=== PATIENT | female | born 1950 | race Caucasian/White ===

== ENCOUNTER 2017-04-11 21:53 | Emergency (ER) | payer MEDICARE ==
[~2017-04-11 21:53] MED LIST: ISOVUE-370 76%-LOCM 1 ML ONE
[2017-04-11 22:58] LABS: #Eosinphils 0.4 thou/uL (0.0-0.7); #Lymphocytes 2.4 thou/uL (1.20-3.40); #Monocytes 0.9 thou/uL (0.11-0.59); #Neutrophils 4.5 thou/uL (1.40-6.50); %Basophils 0.1 % (0.0-1.0); %Eosinophils 4.9 % (0.0-10.0); %Lymphocytes 29.5 % (21.0-51.0); %Monocytes 10.9 % (0.0-10.0); Hematocrit 40.8 % (36.0-47.0); Mean Platelet Volume 7.5 fL (7.4-10.4); Red Blood Cell (RBC) Count 4.44 mill/uL (4.20-5.40); White Blood Cell (WBC) Count 8.3 thou/uL (4.8-10.8)
[2017-04-11 23:10] LABS: Lactic Acid - Sepsis 2.4 mmol/L (0.5-2.2)
[2017-04-11 23:15] LABS: ALT (SGPT) 14 U/L (8-55); AST (SGOT) 14 U/L (5-34); Alkaline Phosphatase 104 U/L (40-150); Anion Gap 12 mmol/L (10-20); BUN (Urea Nitrogen) 18 mg/dL (9.8-20.1); Bilirubin, Total 0.5 mg/dL (0.2-1.2); Calc. Creatinine Clearance 0 mL/min (70-130); Calcium 9.3 mg/dL (7.8-10.44); Carbon Dioxide 22 mmol/L (23-31); Chloride 104 mmol/L (98-107); Estimated GFR-MDRD 64; Globulin 2.9 g/dL (2.4-3.5); Protein, Total 6.6 g/dL (6.0-8.3)
--- NOTE | 2017-04-11 23:55 | CT ---
CT FACIAL BONES 04/11/17 Axial images are obtained with coronal and sagittal reconstructions. HISTORY: Facial swelling, possible abscess. Axial images are obtained with coronal and sagittal reconstructions. The orbits demonstrate no significant evidence of intra or extraconal abnormalities. The frontal, eth moid, maxillary and sphenoid sinuses are well aerated. The parotid and carotid spaces are unremarkabl e. The nasopharynx is unremarkable. No significant evidence of lymphadenopathy seen. IMPRESSION: Normal contrast enhanced CT face. POS: [facility]
--- NOTE | 2017-04-11 23:57 | CT ---
CONTRAST ENHANCED CT IMAGES OF BRAIN 04/11/17 HISTORY: Forehead abscess. Contrast enhanced CT images of the brain is obtained. No evidence of significant scalp abscess seen. There is some edema in the anterior just right paracen tral aspect of the scalp which may represent some minimal cellulitis. No evidence of enhancing absces s is seen. Te brain is unremarkable. No evidence of intracranial masses, hemorrhages or strokes seen. The paranasal sinuses are well aerated. IMPRESSION: No definite evidence of scalp abscess. There is some minimal right frontal scalp asymmetry and edema, possibly representing cellulitis. POS: [facility]
== END 2017-04-12 03:10 | disposition home or self-care (01) ==
LOC: ERS 21:53
DX: R21 Rash and other nonspecific skin eruption (principal); K50.90 Crohn's disease, unspecified, without complications; M06.9 Rheumatoid arthritis, unspecified; E11.9 Type 2 diabetes mellitus without complications; F32.9 Major depressive disorder, single episode, unspecified; Z79.899 Other long term (current) drug therapy
CPT/HCPCS: 36415; 36416; 70460; 70487; 80053; 83605; 85025; 87040; 96361; 96365; J3370

== ENCOUNTER 2017-05-09 09:18 | Day surgery (SDC) | payer MEDICARE ==
[2017-05-08 11:27] VITALS: BMI 30.7
[~2017-05-09 09:18] MED LIST changes: +FLU VACC TS2017-18 (>65YR) 0.5 ML SYRINGE IM ONE; -ISOVUE-370 76%-LOCM 1 ML ONE
[2017-05-09 11:04] VITALS: BP 126/88; TEMP 97.5
--- NOTE | 2017-05-09 15:25 | RAD ---
LUMBAR SPINE MYELOGRAM INDICATION: Low back pain, lumbar myelopathy, spondylosis. PROCEDURE: After informed consent had been obtained, the patient was escorted to the interventional suite and pl aced on the procedural table. Sulfide Head Operator imaging was performed. The patient was placed into a prone posi tion. Skin on the low back was then prepped and draped in the standard sterile fashion and topical a nd regional soft tissue anesthesia was achieved with 1% lidocaine and sodium bicarbonate. L3-4 righ t interlaminar approach was selected, and a 22 gauge needle was uneventfully advanced into the thecal sac with clear color CSF. Subsequently, 10 cc Omnipaque 200 was instilled into the thecal sac under real time fluoroscopy. Appropriate opacification of thecal sac demonstrated with imaging stored for confirmation. The needle was then removed from the patient. The patient tolerated the procedure we ll and was then transferred to CT to undergo subsequent myelogram. Reference separate report for stephon farnsworth details. FLUORO DATA: 0.3 minutes intermittent fluoroscopy, 41 mGy*^m2. IMPRESSION: Technically successful lumbar myelogram as detailed above. POS: [facility]
--- NOTE | 2017-05-09 15:53 | CT ---
CT LUMBAR SPINE MYELOGRAM CT LUMBAR SPINE WITH CONTRAST: CLINICAL HISTORY: Lumbar spondylosis and myelopathy. FINDINGS: There is multilevel posterior metallic fusion which spans the L3 through S1 segments. There are bila teral pedicle screws with bilateral vertical interconnecting rods. No obvious perihardware lucency i s demonstrated. Intervertebral disk space prostheses are present at L3-4, L4-5, and L5-S1. L5-S1: No significant central canal stenosis. There is mild to moderate osseous compromise of the r ight neural foramen. No high-grade left renal stenosis. L4-5: No significant central canal stenosis. There is moderate osseous compromise of the left neura l foramen and mild osseous compromise of the right neural foramen. L3-4: Prominent streak artifact limits assessment, although no significant central canal compromise. There is mild osseous compromise of each neural foramen. L2-3: Mild to moderate central canal stenosis on the basis of broad-based disk bulge. There is no h igh-grade foraminal stenosis. There is mild effacement of the ventral thecal sac by disk-osteophyte complex. No high foraminal chloe nosis. There is an indwelling IVC filter incidentally noted. There are partially imaged metallic screws of each supraacetabular region. Conus medullaris terminates at the T12 level. There is nonobstructing punctate nephrolithiasis involving superior pole of the right kidney. Incide ntally noted is a small hiatal hernia. IMPRESSION: Postoperative lumbar spine with multilevel degenerative change as outlined above. POS: [facility]
== END 2017-05-09 12:50 | disposition home or self-care (01) ==
LOC: RAD 09:18
PROVIDERS: ATTEND Neurological Surgery
PROC: B00B1ZZ Plain Radiography of Spinal Cord using Low Osmolar Contrast (ICD-10-PCS; principal; 2017-05-09)
DX: M47.16 Other spondylosis with myelopathy, lumbar region (principal); D64.9 Anemia, unspecified; E11.9 Type 2 diabetes mellitus without complications; K50.90 Crohn's disease, unspecified, without complications; Q79.6 Ehlers-Danlos syndromes; M06.9 Rheumatoid arthritis, unspecified; K21.9 Gastro-esophageal reflux disease without esophagitis; I35.1 Nonrheumatic aortic (valve) insufficiency; E03.9 Hypothyroidism, unspecified; F41.8 Other specified anxiety disorders; Z79.4 Long term (current) use of insulin; Z79.899 Other long term (current) drug therapy; Z98.1 Arthrodesis status; Z98.51 Tubal ligation status; Z96.643 Presence of artificial hip joint, bilateral; Z90.89 Acquired absence of other organs; Z90.710 Acquired absence of both cervix and uterus; Z90.49 Acquired absence of other specified parts of digestive tract; Z90.722 Acquired absence of ovaries, bilateral; Z90.79 Acquired absence of other genital organ(s); Z98.890 Other specified postprocedural states; Z91.410 Personal history of adult physical and sexual abuse; Z86.14 Personal history of Methicillin resistant Staphylococcus aureus infection
CPT/HCPCS: 62304; 72132

== ENCOUNTER 2017-07-10 12:43 | Outpatient (CLI) | payer MEDICARE | END 2017-07-10 12:44 | disposition home or self-care (01) | LOC: BICMAMMO 12:43 | PROVIDERS: ATTEND Internal Medicine | DX: Z12.31 Encounter for screening mammogram for malignant neoplasm of breast (principal) | CPT/HCPCS: 77063; 77067 ==

== ENCOUNTER 2017-08-09 20:34 | Emergency (ER) | payer MEDICARE ==
[2017-08-09 22:53] LABS: #Eosinphils 0.1 thou/uL (0.0-0.7); #Lymphocytes 2.6 thou/uL (1.20-3.40); #Monocytes 0.7 thou/uL (0.11-0.59); #Neutrophils 3.6 thou/uL (1.40-6.50); %Basophils 0.6 % (0.0-1.0); %Eosinophils 1.8 % (0.0-10.0); %Monocytes 9.3 % (0.0-10.0); %Neutrophils 51.3 % (42.0-75.0); Mean Corpuscular HGB CONC 34.1 g/dL (32.0-36.0); Mean Corpuscular Hemoglobin 33.4 pg (27.0-31.0); Mean Corpuscular Volume 97.9 fl (81.0-99.0); Mean Platelet Volume 7.3 fL (7.4-10.4); Platelet Count 208 thou/uL (130-400); RBC Distribution Width 11.6 % (11.5-14.5); Red Blood Cell (RBC) Count 4.78 mill/uL (4.20-5.40); White Blood Cell (WBC) Count 6.9 thou/uL (4.8-10.8)
[2017-08-09 23:13] LABS: ALT (SGPT) 19 U/L (8-55); AST (SGOT) 16 U/L (5-34); Albumin 4.4 g/dL (3.4-4.8); Alkaline Phosphatase 113 U/L (40-150); Anion Gap 13 mmol/L (10-20); BUN (Urea Nitrogen) 23 mg/dL (9.8-20.1); Bilirubin, Total 0.8 mg/dL (0.2-1.2); Calc. Creatinine Clearance 0 mL/min (70-130); Calcium 10.8 mg/dL (7.8-10.44); Carbon Dioxide 26 mmol/L (23-31); Chloride 104 mmol/L (98-107); Estimated GFR-MDRD 50; Globulin 2.9 g/dL (2.4-3.5); Glucose 188 mg/dL (80-115); Potassium 4.4 mmol/L (3.5-5.1); Protein, Total 7.3 g/dL (6.0-8.3); Sodium 139 mmol/L (136-145)
[2017-08-09 23:18] LABS: CKMB 2.2 ng/mL (0-6.6); Troponin I Less than 0.010 ng/mL (< 0.028)
--- NOTE | 2017-09-22 22:13 | EKG ---
Test Reason : Blood Pressure : / mmHG Vent. Rate : 057 BPM Atrial Rate : 057 BPM P-R Int : 176 ms QRS Dur : 080 ms QT Int : 448 ms P-R-T Axes : 064 012 046 degrees QTc Int : 436 ms Sinus bradycardia Otherwise normal ECG Confirmed by NEDA LERNER D.O. ([id number]), editor sound BEATRICE GARCIA ([id number]) on 09/22/2017 10:13:04 PM Referred By: Confirmed By:NEDA LERNER D.O.
== END 2017-08-09 23:40 | disposition home or self-care (01) ==
LOC: ERS 20:34
DX: R07.89 Other chest pain (principal); E11.9 Type 2 diabetes mellitus without complications; F32.9 Major depressive disorder, single episode, unspecified
CPT/HCPCS: 36415; 80053; 82553; 84443; 84484; 85025; 93005

== ENCOUNTER 2017-09-19 11:02 | Outpatient (CLI) | payer MEDICARE | END 2017-09-19 11:03 | disposition home or self-care (01) | LOC: BICRAD 11:02 | PROVIDERS: ATTEND Internal Medicine | DX: M43.16 Spondylolisthesis, lumbar region (principal); M81.8 Other osteoporosis without current pathological fracture; Z98.1 Arthrodesis status | CPT/HCPCS: 72110 ==

== ENCOUNTER 2017-12-25 06:37 | Day surgery (SDC) | payer MEDICARE ==
[2017-12-24 11:52] VITALS: BMI 31.4
[2017-12-25 07:59] VITALS: BP 139/88; TEMP 96.7
--- NOTE | 2017-12-25 10:16 | RAD ---
LUMBAR SPINE MYELOGRAM: Date: 12/25/17 INDICATION: Low back pain, lower extremity pain/lumbar radiculopathy, bilaterally. PROCEDURE: Informed consent was obtained, and the patient was transferred to the interventional suite. It Senior Software Engineer Java im aging was performed prior to the procedure. The patient was then placed into a prone position, and the low back was prepped and draped in the sta ndard sterile fashion. Topical anesthesia was achieved with 1% lidocaine buffered with sodium bicarb rg. Using a 22 gauge needle, uneventful access was obtained into the thecal sac from an interlami ag approach at the L2-3 level. Clear color CSF was noted at the needle hub. Subsequently, 10 mL of Omnipaque 200 was instilled into the thecal sac. This was performed under real-time fluoroscopy wit h appropriate contrast opacification of the thecal sac demonstrated during the exam with adequate con trast opacification achieved. The needle was removed. The patient tolerated the procedure well with out evidence of complication. The patient was then transferred to CT Department to undergo further i maging. Please reference separate CT myelogram for additional details. Exposure Data: 0.3 minutes. 141 mGy*cm^2. IMPRESSION: Technically successful lumbar spine myelogram. POS: [facility]
--- NOTE | 2017-12-25 10:21 | CT ---
LUMBAR SPINE CT WITH CONTRAST CT MYELOGRAM OF LUMBAR SPINE: Date: 12/25/17 CLINICAL HISTORY: Low back pain. COMPARISON: 05/09/17 CT lumbar spine myelogram. FINDINGS: There is posterior metallic fusion which spans the L3 through S1 segments. No interval perihardware l ucency of significance is visualized. Hardware alignment is grossly stable. Conus medullaris terminat es at the T12 level. Redemonstration of punctate right nephrolithiasis. Scattered vascular disease is present. There is an inferior vena cava filter in place. L5-S1: No significant central canal stenosis. Grossly stable mild to moderate right neural foraminal narrowi ng. No significant left foraminal stenosis. L4-5: No significant central canal stenosis. There is grossly stable moderate stenosis of the left neural f oramen and mild osseous compromise of the right neural foramen. L3-4: This level remains markedly limited in visualization by prominent degree of streak artifact. No signi ficant interval change with regard to central canal and neural foramina, with no new high grade osseo us compromise of the central canal. Mild narrowing of each neural foramen is grossly stable. L2-3: There remains mild to moderate central canal stenosis due to broad based disc bulge. No high grade fo raminal stenosis. L1-2: No significant interval change with persistent mild effacement of the ventral thecal sac. No signific ant neural foraminal stenosis. IMPRESSION: Postoperative lumbar spine with stable appearing multilevel degenerative change. POS: [facility]
== END 2017-12-25 10:05 | disposition home or self-care (01) ==
LOC: RAD 06:37
PROVIDERS: ATTEND Nurse Practitioner Family
DX: M48.062 Spinal stenosis, lumbar region with neurogenic claudication (principal); M47.816 Spondylosis without myelopathy or radiculopathy, lumbar region; N28.9 Disorder of kidney and ureter, unspecified; E11.9 Type 2 diabetes mellitus without complications; E78.00 Pure hypercholesterolemia, unspecified; K50.90 Crohn's disease, unspecified, without complications; Z79.899 Other long term (current) drug therapy
CPT/HCPCS: 62304; 72132

== ENCOUNTER 2018-02-05 10:29 | Outpatient (CLI) | payer MEDICARE ==
--- NOTE | 2018-02-05 12:02 | RAD ---
RIGHT HIP TWO VIEWS: History: 68-year-old female with right hip pain. Comparison: 01-23-13 FINDINGS: Total right hip replacement without dislocation or periprosthetic fracture with little change from pr ior exam. IMPRESSION: Total right hip replacement. No acute process. POS: [facility]
== END 2018-02-05 10:30 | disposition home or self-care (01) ==
LOC: RAD 10:29
PROVIDERS: ATTEND Nurse Practitioner Family
DX: M25.551 Pain in right hip (principal); Z96.641 Presence of right artificial hip joint

== ENCOUNTER 2018-05-10 10:03 | Day surgery (SDC) | payer MEDICARE ==
[2018-05-10] MEDS ORDERED: Vancomycin HCl 1.5 GM in Sodium Chloride 0.9% 250 ML 300 ML IVPB SCH (10:45)
[2018-05-10] MEDS ORDERED: Ondansetron PF 4 MG/2 ML Vial ONE (10:48)
[2018-05-10] MEDS ORDERED: Lidocaine 1% PF 5 ML VIAL ONE (10:48)
[2018-05-10] MEDS ORDERED: PROPOFOL 200 MG/20 ML VIAL ONE (10:48)
[2018-05-10 10:59] LABS: #Eosinphils 0.2 thou/uL (0.0-0.7); #Lymphocytes 1.9 thou/uL (1.20-3.40); #Monocytes 0.5 thou/uL (0.11-0.59); #Neutrophils 3.7 thou/uL (1.40-6.50); %Basophils 0.3 % (0.0-1.0); %Lymphocytes 29.7 % (21.0-51.0); %Monocytes 8.7 % (0.0-10.0); %Neutrophils 58.4 % (42.0-75.0); Hemoglobin 14.7 g/dL (12.0-16.0); Mean Corpuscular HGB CONC 34.6 g/dL (32.0-36.0); Mean Corpuscular Hemoglobin 32.7 pg (27.0-31.0); Mean Corpuscular Volume 94.4 fL (78.0-98.0); Mean Platelet Volume 7.3 fL (7.4-10.4); Platelet Count 178 thou/uL (130-400); RBC Distribution Width 11.4 % (11.5-14.5); Red Blood Cell (RBC) Count 4.49 mill/uL (4.20-5.40); White Blood Cell (WBC) Count 6.3 thou/uL (4.8-10.8)
[2018-05-10 11:18] LABS: Anion Gap 12 mmol/L (10-20); BUN (Urea Nitrogen) 20 mg/dL (9.8-20.1); Calc. Creatinine Clearance 0 mL/min (70-130); Calcium 10.1 mg/dL (7.8-10.44); Carbon Dioxide 28 mmol/L (23-31); Chloride 105 mmol/L (98-107); Estimated GFR-MDRD 60; Glucose 117 mg/dL (80-115); Potassium 4.5 mmol/L (3.5-5.1); Sodium 140 mmol/L (136-145)
[2018-05-10] MEDS ORDERED: Bupivacaine/Epinephrine 0.25% 30 ML VIAL ONE (11:41)
[2018-05-10] MEDS ORDERED: Fentanyl 100 MCG/2 ML VIAL ONE (11:50)
--- NOTE | 2018-05-10 15:46 | PDOC.OP ---
Operative Note - Operative Note Operative Note: PROCEDURE: Incision and drainage of right arm hematoma DATE OF PROCEDURE: 05/10/2018 SURGEON: Alejandra Calabrese M.D. PREOPERATIVE DIAGNOSES: Right arm hematoma POSTOPERATIVE DIAGNOSIS: Right arm hematoma HISTORY: Patient with persistent protuberant tender subcutaneous mass consistent with a hematoma following a fall over a month ago. She has a history of Dandy-Danlos and multiple MRSA infections so the decision was made to drain this in the operating room with preoperative antibiotics. PROCEDURE IN DETAIL: After informed consent was obtained and appropriate preoperative antibiotics were administered, the patient was taken to the operating room she was placed in supine position and intravenous anesthesia was administered. She was prepped and draped in standard sterile fashion and local anesthesia infused circumferentially for a field block. An elliptical incision was made including some of the redundant skin and a large hematoma cavity entered. Some of the hematoma was liquid but most of it was organized and solid. This was able to be from the surrounding tissues and removed. The patient appeared to have a chronic somewhat serosalized cavity so this was cauterized to encourage adherence of the tissues and the cavity was imbricated with several layers of Vicryl suture. The skin was then closed with a running subcuticular 4-0 Monocryl suture and Dermabond dressing was placed. Once this was dry, a pressure dressing and Rufus wrap were placed. The patient tolerated the procedure well. Estimated blood loss was minimal. There were no complications. There were no specimens.
== END 2018-05-10 14:35 | disposition home or self-care (01) ==
LOC: SDC 10:03
PROVIDERS: ATTEND Surgery
PROC: 0J9D0ZZ Drainage of Right Upper Arm Subcutaneous Tissue and Fascia, Open Approach (ICD-10-PCS; principal; 2018-05-10)
DX: S40.021A Contusion of right upper arm, initial encounter (principal); I10 Essential (primary) hypertension; E11.9 Type 2 diabetes mellitus without complications; E78.00 Pure hypercholesterolemia, unspecified; E07.9 Disorder of thyroid, unspecified; M19.90 Unspecified osteoarthritis, unspecified site; F32.9 Major depressive disorder, single episode, unspecified; K50.90 Crohn's disease, unspecified, without complications; Z90.89 Acquired absence of other organs; Z98.51 Tubal ligation status; Z90.710 Acquired absence of both cervix and uterus; Z79.4 Long term (current) use of insulin; Z79.1 Long term (current) use of non-steroidal anti-inflammatories (NSAID); Z79.899 Other long term (current) drug therapy; Z98.890 Other specified postprocedural states; W19.XXXA Unspecified fall, initial encounter
CPT/HCPCS: 80048; 85025; J2001; J2405; J2704; J3010; J3370; J7050

== ENCOUNTER 2018-06-04 11:27 | Day surgery (SDC) | payer MEDICARE ==
[2018-05-09 12:00] VITALS: BMI 32.3
[2018-06-04] MEDS ORDERED: Fentanyl 100 MCG/2 ML VIAL ONE (13:27)
[2018-06-04] MEDS ORDERED: Propofol 1,000 MG/100 ML VIAL IV ONE (13:27)
[2018-06-04] MEDS ORDERED: Bupivacaine HCl 0.5%/Epinephrine 1:200,000/PF 30 ml Vial ONE (13:38)
[2018-06-04] MEDS ORDERED: Lidocaine 2% PF 5 ML VIAL ONE (13:38)
[2018-06-04] MEDS ORDERED: Sodium Chloride 0.9% 0 ML ONE (13:39)
[2018-06-04] MEDS ORDERED: ePHEDrine 50 MG/ML VIAL ONE (16:37)
[2018-06-04] MEDS ORDERED: PHENYLEPHRINE-NS 100 MCG/ML 10 ML SYRINGE ONE (16:37)
[2018-06-04] MEDS ORDERED: PROPOFOL 200 MG/20 ML VIAL ONE (16:37)
--- NOTE | 2018-06-04 16:56 | RAD ---
LUMBAR SPINE INTRAOPERATIVE FLUOROSCOPY: 06/04/18 HISTORY: Stimulator lead placement. FINDINGS/IMPRESSION: : Intraoperative fluoroscopy was provided for stimulator lead placement as performed by Dr. Guerrero . Single spot image shows two metallic leads overlying the central spinal canal of the mid to lower t horacic spine. FLUORO TIME: 3:01. POS: [facility]
--- NOTE | 2018-06-05 14:43 | OP ---
DATE OF PROCEDURE: 06/04/2018 PREOPERATIVE DIAGNOSES: 1. Post-laminectomy syndrome, lumbar. 2. Chronic pain. 3. Chronic lumbar radiculopathy. POSTOPERATIVE DIAGNOSES: 1. Post-laminectomy syndrome, lumbar. 2. Chronic pain. 3. Chronic lumbar radiculopathy. PROCEDURES PERFORMED: 1. Implantation of the right spinal cord stimulation electrode array. 2. Implantation of the left spinal cord stimulation electrode array. 3. Intraoperative programming. 4. Fluoroscopic guidance. 5. Implantation of internal pulse generator. ANESTHESIA: TIVA. COMPLICATIONS: None. ESTIMATED BLOOD LOSS: Minimal. DESCRIPTION OF PROCEDURE: Risks and benefits were discussed. Informed consent was obtained. She was taken to the OR and prepped and draped in standard fashion with DuraPrep. Preoperatively, the patient was given 1 g of Vancomycin given her prior remote history of MRSA infection. Note that she has had a successful trial without complication of spinal cord stimulation in the past. She was prepped and draped in the standard fashion with DuraPrep, let to dry. 1% lidocaine was used for skin wheal over the spinous processes from L1 through L3 and over the left buttocks that has the IPG. Incision was taken down to using the Metzenbaum's and Bovie for blunt dissection and hemostasis down to the supraspinous ligament. Using right and left paramedian approach, the supplied Tuohy needle st. Lance system was advanced easily into the ligament of flavum, loss of resistance technique; one pass, no paresthesia, CHF, or heme. The leads were then advanced under fluoroscopic guidance with the most cephalad electrode at the superior endplate of T9 on the right side, left lead was placed parallel, intraoperative programming ensued for 1 hour, achieving appropriate back and bilateral leg stimulation concordant and overlapping with the patient's symptomatology. This completed the lead implant. The stylets were removed intact. The needles were removed intact. Lead anchors were slipped over the leads. Each lead was secured to the fascia using two 2-0 silk sutures, each lead anchor was then locked in place. Attention was then turned to the left pocket. Incision was made to the skin, blunt dissection to the fascia. Fascia undermined. Tunneler was accomplished between incisions using the supplied straw tunneler. Leads were placed through the straw into the IPG pocket. Straw was then removed. Leads were then placed into the internal pulse generator and all set screws were tightened with the ratcheted screwdriver. The St. Lance's non-rechargeable internal pulse generator was then placed in the pocket riding side out. Closure was accomplished with interrupted 2-0 Vicryl in layers for both incisions and skin was closed with running subcuticular 4-0 Rapide. Prior to closure, all counts were correct x2. There were no complications. Job ID: [id number]
== END 2018-06-04 16:40 | disposition home or self-care (01) ==
LOC: SDC 11:27
PROVIDERS: ATTEND Anesthesiology Pain Medicine
PROC: 0JH70DZ Insertion of Multiple Array Stimulator Generator into Back Subcutaneous Tissue and Fascia, Open Approach (ICD-10-PCS; principal; 2018-06-04)
PROC: 00HU3MZ Insertion of Neurostimulator Lead into Spinal Canal, Percutaneous Approach (ICD-10-PCS; 2018-06-04)
DX: M96.1 Postlaminectomy syndrome, not elsewhere classified (principal); M54.16 Radiculopathy, lumbar region; E11.9 Type 2 diabetes mellitus without complications; E03.9 Hypothyroidism, unspecified; K21.9 Gastro-esophageal reflux disease without esophagitis; K50.90 Crohn's disease, unspecified, without complications; Q79.6 Ehlers-Danlos syndromes; M06.9 Rheumatoid arthritis, unspecified; Z95.818 Presence of other cardiac implants and grafts; Z79.4 Long term (current) use of insulin; Z79.899 Other long term (current) drug therapy
CPT/HCPCS: 72020; 76000; C1767; J0670; J2001; J2704; J3010; J3370; J3490

== ENCOUNTER 2018-07-18 09:03 | Outpatient (CLI) | payer MEDICARE ==
--- NOTE | 2018-07-22 13:24 | MMO ---
Bilateral MAMMO Bilat Screen [facility]. CLINICAL HISTORY: Patient is 68 years old and is seen for screening. The patient has no family history of breast cancer. The patient has a history of other cancer. The patient has a history of right Excisional Biopsy in April, - benign, left Excisional Biopsy in 1982 - benign and right Excisional Biopsy in 1987 - benign - cyst removed. VIEWS: The views performed were: bilateral craniocaudal with tomosynthesis and bilateral mediolateral oblique with tomosynthesis. FILMS COMPARED: The present examination has been compared to prior imaging studies performed at [facility] on 02/14/2012, 05/23/2012, 04/10/2013, 04/13/2014, 05/20/2015, 06/08/2016 and 07/10/2017, and at [facility] on 02/13/2007, 08/06/2008, 10/27/2009 and 12/22/2010. MAMMOGRAM FINDINGS: There are scattered fibroglandular densities. There is a new focal asymmetry seen in the posterior upper-inner region of the right breast. In the left breast, there are no suspicious masses, calcifications or areas of architectural distortion. IMPRESSION: NEW FOCAL ASYMMETRY IN THE RIGHT BREAST REQUIRES ADDITIONAL EVALUATION. AN ULTRASOUND EXAM IS RECOMMENDED IF NEEDED. RECOMMEND DIAGNOSTIC MAMMOGRAM. THE RESULTS OF THIS EXAM WERE SENT TO THE PATIENT. ACR BI-RADS Category 0 - Incomplete: Need additional imaging evaluation. [facility] will notify the patient of the need for additional imaging services. MAMMOGRAPHY NOTE: 1. A negative mammogram report should not delay a biopsy if a dominant of clinically suspicious mass is present. 2. Approximately 10% to 15% of breast cancers are not detected by mammography. 3. Adenosis and dense breasts may obscure an underlying neoplasm.
== END 2018-07-18 09:04 | disposition home or self-care (01) ==
LOC: BICMAMMO 09:03
PROVIDERS: ATTEND Internal Medicine
DX: Z12.31 Encounter for screening mammogram for malignant neoplasm of breast (principal); N64.89 Other specified disorders of breast; Z85.89 Personal history of malignant neoplasm of other organs and systems; Z98.890 Other specified postprocedural states
CPT/HCPCS: 77063; 77067

== ENCOUNTER 2018-07-26 09:46 | Outpatient (CLI) | payer MEDICARE ==
--- NOTE | 2018-07-26 11:56 | MMO ---
Right Breast MAMMO Unilat Diag [facility]. CLINICAL HISTORY: Patient is 68 years old and is seen for additional evaluation requested from prior study. The patient has no family history of breast cancer. The patient has a history of other cancer. The patient has a history of right Excisional Biopsy in April, - benign, left Excisional Biopsy in 1982 - benign and right Excisional Biopsy in 1987 - benign - cyst removed. VIEWS: The views performed were: right craniocaudal magnification; right mediolateral oblique magnification; right mediolateral; right rolled lateral with tomosynthesis; and right rolled medial with tomosynthesis. FILMS COMPARED: The present examination has been compared to prior imaging studies performed at [facility] on 02/14/2012, 05/23/2012, 04/10/2013, 04/13/2014, 05/20/2015, 06/08/2016, 07/10/2017 and 07/18/2018, and at [facility] on 02/13/2007, 08/06/2008, 10/27/2009 and 12/22/2010. MAMMOGRAM FINDINGS: There are scattered fibroglandular densities. Additional views were performed. The previously seen abnormality is not definitely seen on the current study. IMPRESSION: THERE IS NO MAMMOGRAPHIC EVIDENCE OF MALIGNANCY. A ROUTINE FOLLOW-UP MAMMOGRAM IN 1 YEAR IS RECOMMENDED. 3BTHE RESULTS OF THIS EXAM WERE SENT TO THE PATIENT.0B ACR BI-RADS Category 2 - Benign finding MAMMOGRAPHY NOTE: 1. A negative mammogram report should not delay a biopsy if a dominant of clinically suspicious mass is present. 2. Approximately 10% to 15% of breast cancers are not detected by mammography. 3. Adenosis and dense breasts may obscure an underlying neoplasm.
== END 2018-07-26 09:47 | disposition home or self-care (01) ==
LOC: BICMAMMO 09:46
PROVIDERS: ATTEND Internal Medicine
DX: R92.2 Inconclusive mammogram (principal); Z85.89 Personal history of malignant neoplasm of other organs and systems
CPT/HCPCS: 77065; G0279

== ENCOUNTER 2019-05-13 21:19 | Emergency (ER) | payer MEDICARE ==
--- NOTE | 2019-05-13 22:47 | CT ---
CT head noncontrast HISTORY: Subdural hematoma on outside exam. COMPARISON: 04/11/2017. FINDINGS: Along the right frontal inner calvarium is a crescentic heterogeneous slightly hyperdense f luid collection that measures up to 0.4 cm depth. Along the most superior aspect, the low-density old or portion contains smaller internal hyperdense foci. Minimal effacement of the underlying cerebr al sulci with very subtle mass effect upon the right frontal lobe. Minimal leftward shift of the septum pellucidum. Ventricles are decompressed. IMPRESSION: Acute/subacute right frontal subdural hematoma. Mass effect upon the right frontal lobe w ith minimal leftward shift of the septum pellucidum. Findings were called to Dr. Branham in the emergency department at [id number] hours. Code CR.
== END 2019-05-13 23:45 | disposition home or self-care (01) ==
LOC: ERS 21:19
DX: S06.5X9A Traumatic subdural hemorrhage with loss of consciousness of unspecified duration, initial encounter (principal); K21.9 Gastro-esophageal reflux disease without esophagitis; E78.5 Hyperlipidemia, unspecified; I10 Essential (primary) hypertension; F32.9 Major depressive disorder, single episode, unspecified; Z79.899 Other long term (current) drug therapy; W18.30XA Fall on same level, unspecified, initial encounter
CPT/HCPCS: 70450

== ENCOUNTER 2019-05-15 13:10 | Outpatient (CLI) | payer MEDICARE ==
--- NOTE | 2019-05-15 13:32 | CT ---
CT BRAIN NONCONTRAST: DATE: 05/15/2019 HISTORY: 69-year-old female. Follow-up subdural hematoma. COMPARISON: 05/13/2019 FINDINGS: Again noted is the mixed density right frontoparietal small, broad subdural hematoma. High density co mponents indicate recent component of hemorrhage. Mass effect is minimal upon the right cerebral hemisphere. On an older CT of 04/11/2017, there was already chronic slight right to left shift of the septum pellucidum a distance of 4 mm. Currently, the shift is approximately 6 to 7 mm. The size of the right subdural hematoma has not significant changed since 05/13/2019. No obstructive hydrocephalus , new intra-axial hemorrhage, or calvarial fracture. IMPRESSION: 1. Recent right supratentorial, broad, shallow subdural hematoma with mild mass effect. 2. No significant interval change since 2 days ago.
== END 2019-05-15 13:11 | disposition home or self-care (01) ==
LOC: TBSIIMAG 13:10
PROVIDERS: ATTEND Neurological Surgery
DX: I62.03 Nontraumatic chronic subdural hemorrhage (principal); G93.89 Other specified disorders of brain
CPT/HCPCS: 70450

== ENCOUNTER 2019-07-15 13:19 | Outpatient (CLI) | payer MEDICARE ==
--- NOTE | 2019-07-15 13:56 | CT ---
Exam: Head CT without contrast HISTORY: Follow-up subdural hematoma COMPARISON: 05/15/2019 FINDINGS: Hemorrhage: Slightly hyperdense, enlarging subdural hematoma, with possible loculation, along the rig ht frontal, and anterior temporal convexity. Currently, hematoma measures 1.4 cm in short axis. There is mass effect upon the right frontal and to lesser extent temporal lobe. There is midline shif t, with 0.4 cm right to left subfalcine herniation. Basilar cisterns are patent. Brain parenchyma: Cortical uriarte-white matter differentiation is preserved. Minimal chronic small vess el ischemic changes white matter. Ventricular system: Ventricles and sulci are patent and symmetric. Calvarium: Intact. Sinuses and mastoid air cells: Adequate aeration. IMPRESSION: 1. Enlarging right-sided subdural hematoma. There is increasing mass effect upon the right frontal lo be. 2. 0.4 cm of right to left subfalcine herniation Results study discussed with Julisa Merida on 07/15/2019 1:54 PM Code CR Transcribed Date/Time: 07/15/2019 2:02 PM
== END 2019-07-15 13:20 | disposition home or self-care (01) ==
LOC: TBSIIMAG 13:19
PROVIDERS: ATTEND Physician Assistant
DX: I62.03 Nontraumatic chronic subdural hemorrhage (principal); G93.89 Other specified disorders of brain; G93.5 Compression of brain
CPT/HCPCS: 70450

== ENCOUNTER 2019-08-28 12:37 | Outpatient (CLI) | payer MEDICARE ==
--- NOTE | 2019-08-28 13:39 | MMO ---
Bilateral MAMMO Bilat Screen [facility]. CLINICAL HISTORY: Patient is 69 years old and is seen for screening. The patient has no family history of breast cancer. The patient has a history of other cancer. The patient has a history of right Excisional Biopsy in April, - benign, left Excisional Biopsy in 1982 - benign and right Excisional Biopsy in 1987 - benign - cyst removed. VIEWS: The views performed were: bilateral craniocaudal with tomosynthesis and bilateral mediolateral oblique with tomosynthesis. FILMS COMPARED: The present examination has been compared to prior imaging studies performed at [facility] on 07/10/2017, 07/18/2018 and 07/26/2018. This study has been interpreted with the assistance of computer-aided detection. MAMMOGRAM FINDINGS: There are scattered fibroglandular densities. There are no suspicious masses, suspicious calcifications, or new areas of architectural distortion. IMPRESSION: THERE IS NO MAMMOGRAPHIC EVIDENCE OF MALIGNANCY. A ROUTINE FOLLOW-UP MAMMOGRAM IN 1 YEAR IS RECOMMENDED. THE RESULTS OF THIS EXAM WERE SENT TO THE PATIENT. ACR BI-RADS Category 1 - Negative MAMMOGRAPHY NOTE: 1. A negative mammogram report should not delay a biopsy if a dominant of clinically suspicious mass is present. 2. Approximately 10% to 15% of breast cancers are not detected by mammography. 3. Adenosis and dense breasts may obscure an underlying neoplasm. Reported by: Treva RAMIREZ Electonically Signed: [id number]
== END 2019-08-28 12:38 | disposition home or self-care (01) ==
LOC: BICMAMMO 12:37
PROVIDERS: ATTEND Internal Medicine
DX: Z12.31 Encounter for screening mammogram for malignant neoplasm of breast (principal); Z85.89 Personal history of malignant neoplasm of other organs and systems; Z91.89 Other specified personal risk factors, not elsewhere classified
CPT/HCPCS: 77063; 77067

== ENCOUNTER 2019-09-29 | Outpatient (CLI) | payer MEDICARE | END 2019-09-29 13:06 | disposition home or self-care (01) | DX: I62.00 Nontraumatic subdural hemorrhage, unspecified (principal); I67.82 Cerebral ischemia ==

== ENCOUNTER 2020-01-21 12:33 | Outpatient (CLI) | payer MEDICARE ==
--- NOTE | 2020-01-21 12:56 | CT ---
Exam: Head CT without contrast HISTORY: Three-month follow-up for subdural hematoma. COMPARISON: 09/29/2019, 07/15/2019 FINDINGS: Hemorrhage: No intraparenchymal hemorrhage or extra-axial hematoma. Previously noted right frontal juarez bdural hematoma has resolved. Brain parenchyma: Cortical uriarte-white matter differentiation is preserved. No mass effect or midline shift. Basilar cisterns are patent.Minimal chronic small vessel ischemic changes white matter Ventricular system: Ventricles and sulci are patent and symmetric. Calvarium: Intact. Sinuses and mastoid air cells: Adequate aeration. Additional findings: Stable 4 mm of right to left subfalcine herniation. IMPRESSION: No acute intracranial process.
== END 2020-01-21 12:34 | disposition home or self-care (01) ==
LOC: TBSIIMAG 12:33
PROVIDERS: ATTEND Neurological Surgery
DX: I62.00 Nontraumatic subdural hemorrhage, unspecified (principal)
CPT/HCPCS: 70450

== ENCOUNTER 2020-08-05 12:25 | Outpatient (CLI) | payer MEDICARE ==
[~2020-08-05 12:25] MED LIST changes: -FLU VACC TS2017-18 (>65YR) 0.5 ML SYRINGE IM ONE; +Iopamidol 370 76% 100 ML VIAL ONE
== END 2020-08-05 12:26 | disposition home or self-care (01) ==
LOC: CT 12:25
PROVIDERS: ATTEND Internal Medicine
DX: J47.9 Bronchiectasis, uncomplicated (principal); K63.89 Other specified diseases of intestine; K57.30 Diverticulosis of large intestine without perforation or abscess without bleeding; J84.9 Interstitial pulmonary disease, unspecified
CPT/HCPCS: 71250; 74177; 82565; Q9967

== ENCOUNTER 2020-09-06 11:24 | Outpatient (CLI) | payer MEDICARE | END 2020-09-06 11:25 | disposition home or self-care (01) | LOC: BICMAMMO 11:24 | PROVIDERS: ATTEND Internal Medicine | DX: Z12.31 Encounter for screening mammogram for malignant neoplasm of breast (principal); Z91.89 Other specified personal risk factors, not elsewhere classified; Z85.89 Personal history of malignant neoplasm of other organs and systems | CPT/HCPCS: 77063; 77067 ==

== ENCOUNTER 2020-09-10 12:36 | Outpatient (CLI) | payer MEDICARE | END 2020-09-10 12:37 | disposition home or self-care (01) | LOC: BICCT 12:36 | PROVIDERS: ATTEND Nurse Practitioner Family | DX: M54.16 Radiculopathy, lumbar region (principal); Z98.1 Arthrodesis status; Z98.890 Other specified postprocedural states | CPT/HCPCS: 72100; 72110; 72131 ==

== ENCOUNTER 2021-09-15 12:44 | Outpatient (CLI) | payer MEDICARE | END 2021-09-15 12:45 | disposition home or self-care (01) | LOC: BICMAMMO 12:44 | PROVIDERS: ATTEND Internal Medicine | DX: Z12.31 Encounter for screening mammogram for malignant neoplasm of breast (principal); Z91.89 Other specified personal risk factors, not elsewhere classified; Z80.8 Family history of malignant neoplasm of other organs or systems | CPT/HCPCS: 77063; 77067 ==

== ENCOUNTER 2021-11-22 16:46 | Outpatient (CLI) | payer MEDICARE | END 2021-11-22 16:47 | disposition home or self-care (01) | LOC: LABBT 16:46 | PROVIDERS: ATTEND Internal Medicine Gastroenterology | DX: K50.00 Crohn's disease of small intestine without complications (principal); R13.19 Other dysphagia; J84.10 Pulmonary fibrosis, unspecified; R05.3 Chronic cough; Z20.822 Contact with and (suspected) exposure to COVID-19 | CPT/HCPCS: 87811 ==

== ENCOUNTER 2021-11-24 07:13 | Day surgery (SDC) | payer MEDICARE ==
[2021-11-23 10:40] VITALS: BMI 28.8
[2021-11-24] MEDS ORDERED: ePHEDrine 50 MG/ML VIAL ONE (09:32)
[2021-11-24] MEDS ORDERED: Lidocaine 1% PF 5 ML VIAL ONE (09:32)
[2021-11-24] MEDS ORDERED: PROPOFOL 200 MG/20 ML VIAL ONE (09:32)
== END 2021-11-24 11:55 | disposition home or self-care (01) ==
LOC: SDC 07:13
PROVIDERS: ATTEND Internal Medicine Gastroenterology
PROC: 0DB78ZX Excision of Stomach, Pylorus, Via Natural or Artificial Opening Endoscopic, Diagnostic (ICD-10-PCS; principal; 2021-11-24)
PROC: 0D738ZZ Dilation of Lower Esophagus, Via Natural or Artificial Opening Endoscopic (ICD-10-PCS; 2021-11-24)
PROC: 0DBG8ZX Excision of Left Large Intestine, Via Natural or Artificial Opening Endoscopic, Diagnostic (ICD-10-PCS; 2021-11-24)
PROC: 0DBF8ZX Excision of Right Large Intestine, Via Natural or Artificial Opening Endoscopic, Diagnostic (ICD-10-PCS; 2021-11-24)
DX: K50.00 Crohn's disease of small intestine without complications (principal); K29.50 Unspecified chronic gastritis without bleeding; K31.89 Other diseases of stomach and duodenum; K52.9 Noninfective gastroenteritis and colitis, unspecified; K22.2 Esophageal obstruction; K44.9 Diaphragmatic hernia without obstruction or gangrene; K63.3 Ulcer of intestine; K57.30 Diverticulosis of large intestine without perforation or abscess without bleeding; K21.9 Gastro-esophageal reflux disease without esophagitis; J84.10 Pulmonary fibrosis, unspecified; E11.9 Type 2 diabetes mellitus without complications; E03.9 Hypothyroidism, unspecified; Q79.60 Ehlers-Danlos syndrome, unspecified; E78.00 Pure hypercholesterolemia, unspecified; M06.9 Rheumatoid arthritis, unspecified; R05.3 Chronic cough; Z79.4 Long term (current) use of insulin; Z79.890 Hormone replacement therapy; Z79.899 Other long term (current) drug therapy; Z88.1 Allergy status to other antibiotic agents
CPT/HCPCS: 88305; J2704; J3490

== ENCOUNTER 2022-03-25 02:07 | Emergency (ER) | payer MEDICARE ==
[2022-03-25 02:42] LABS: #Eosinphils 0.2 thou/uL (0.0-0.7); #Lymphocytes 2.6 thou/uL (1.20-3.40); #Monocytes 0.7 thou/uL (0.11-0.59); #Neutrophils 5.9 thou/uL (1.40-6.50); %Basophils 0.2 % (0.0-1.0); %Eosinophils 2.4 % (0.0-10.0); %Lymphocytes 27.5 % (21.0-51.0); %Monocytes 7.4 % (0.0-10.0); %Neutrophils 62.5 % (42.0-75.0); Hemoglobin 16.3 g/dL (12.0-16.0); Mean Corpuscular HGB CONC 35.7 g/dL (32.0-36.0); Mean Corpuscular Hemoglobin 34.1 pg (27.0-31.0); Mean Corpuscular Volume 95.5 fl (78.0-98.0); Mean Platelet Volume 7.6 fL (7.4-10.4); Platelet Count 161 10x3/uL (130-400); RBC Distribution Width 13.3 % (11.5-14.5); Red Blood Cell (RBC) Count 4.79 mill/uL (4.20-5.40); White Blood Cell (WBC) Count 9.4 10x3/uL (4.8-10.8)
[2022-03-25 03:04] LABS: ALT (SGPT) 21 U/L (8-55); AST (SGOT) 21 U/L (5-34); Albumin 4.4 g/dL (3.4-4.8); Alkaline Phosphatase 106 U/L (40-110); Anion Gap 14 mmol/L (10-20); BUN (Urea Nitrogen) 11 mg/dL (9.8-20.1); Bilirubin, Total 0.6 mg/dL (0.2-1.2); Calc. Creatinine Clearance 0 mL/min (70-130); Calcium 9.5 mg/dL (7.8-10.44); Carbon Dioxide 19 mmol/L (23-31); Chloride 107 mmol/L (98-107); Estimated GFR 63; Globulin 3.6 g/dL (2.4-3.5); Potassium 3.5 mmol/L (3.5-5.1); Sodium 136 mmol/L (136-145)
[2022-03-25 03:13] LABS: Glucose 54 mg/dL (83-110)
== END 2022-03-25 07:07 | disposition home or self-care (01) ==
LOC: ERS 02:07
DX: S09.90XA Unspecified injury of head, initial encounter (principal); T68.XXXA Hypothermia, initial encounter; E16.2 Hypoglycemia, unspecified; W18.30XA Fall on same level, unspecified, initial encounter; K21.9 Gastro-esophageal reflux disease without esophagitis; I10 Essential (primary) hypertension; E11.9 Type 2 diabetes mellitus without complications; Z79.4 Long term (current) use of insulin; Z79.899 Other long term (current) drug therapy
CPT/HCPCS: 36415; 36416; 70450; 72125; 80053; 85025; 93005

== ENCOUNTER 2022-06-14 10:32 | Emergency (ER) | payer MEDICARE | END 2022-06-14 15:09 | disposition home or self-care (01) | LOC: ERS 10:32 | DX: S76.012A Strain of muscle, fascia and tendon of left hip, initial encounter (principal); E78.5 Hyperlipidemia, unspecified; I10 Essential (primary) hypertension; K21.9 Gastro-esophageal reflux disease without esophagitis; W18.30XA Fall on same level, unspecified, initial encounter; Z79.899 Other long term (current) drug therapy | CPT/HCPCS: 36416 ==

== ENCOUNTER 2022-11-09 13:35 | Outpatient (CLI) | payer MEDICARE | END 2022-11-09 13:36 | disposition home or self-care (01) | LOC: BICMAMMO 13:35 | PROVIDERS: ATTEND Family Medicine Sports Medicine | DX: Z13.820 Encounter for screening for osteoporosis (principal); M85.88 Other specified disorders of bone density and structure, other site; Z78.0 Asymptomatic menopausal state | CPT/HCPCS: 77080 ==

== ENCOUNTER 2022-12-29 11:19 | Inpatient (IN) | payer MEDICARE ==
[~2022-12-29 11:19] MED LIST changes: +ISOVUE-370 76% MDV (1 ML CHARGE) ONE; -Iopamidol 370 76% 100 ML VIAL ONE
[2022-12-29] MEDS ORDERED: Ondansetron PF 4 MG/2 ML Vial ONE ×2 (11:43→13:52)
[2022-12-29 12:22] LABS: #Eosinphils 0.1 thou/uL (0.0-0.7); #Monocytes 0.9 thou/uL (0.11-0.59); #Neutrophils 13.1 thou/uL (1.40-6.50); %Basophils 0.2 % (0.0-1.0); %Eosinophils 0.8 % (0.0-10.0); %Lymphocytes 6.1 % (21.0-51.0); %Monocytes 5.9 % (0.0-10.0); %Neutrophils 86.5 % (42.0-75.0); Hematocrit 45.2 % (36.0-47.0); Hemoglobin 15.4 g/dL (12.0-16.0); Mean Corpuscular HGB CONC 34.1 g/dL (32.0-36.0); Mean Platelet Volume 10.6 fL (7.4-10.4); Platelet Count 154 10x3/uL (130-400); RBC Distribution Width 12.4 % (11.5-14.5); Red Blood Cell (RBC) Count 4.66 mill/uL (4.20-5.40); White Blood Cell (WBC) Count 15.2 10x3/uL (4.8-10.8)
[2022-12-29 12:47] LABS: ALT (SGPT) 18 U/L (8-55); AST (SGOT) 17 U/L (5-34); Albumin 4.3 g/dL (3.4-4.8); Alkaline Phosphatase 102 U/L (40-110); Anion Gap 16 mmol/L (10-20); BUN (Urea Nitrogen) 13 mg/dL (9.8-20.1); Bilirubin, Total 0.9 mg/dL (0.2-1.2); Calc. Creatinine Clearance 0 mL/min (70-130); Calcium 10.3 mg/dL (7.8-10.44); Carbon Dioxide 23 mmol/L (23-31); Chloride 102 mmol/L (98-107); Estimated GFR 55; Globulin 3.3 g/dL (2.4-3.5); Glucose 339 mg/dL (83-110); Lipase 20 U/L (8-78); Magnesium 1.9 mg/dL (1.6-2.6); Potassium 4.5 mmol/L (3.5-5.1); Protein, Total 7.6 g/dL (5.8-8.1); Sodium 136 mmol/L (136-145)
[2022-12-29 12:50] LABS: Troponin I Less than 0.010 ng/mL (< 0.028)
[2022-12-29 13:28] LABS: Bilirubin Negative (Negative); Blood, Urine 2+ (Negative); CAUTI Indications for Culture Pelvic or flank pain; Clarity Clear (Clear); Glucose, Urine (Dipstick) Greater than 1000 mg/dL (Negative); Ketone, Urine Negative (Negative); Leukocyte 250 Leu/uL (Negative); Nitrite Negative (Negative); Protein, Urine (Dipstick) 100 mg/dL (Neg-Trace); Specific Gravity, Urine 1.025 (1.002-1.036); Squamous Epithelial 0-3 HPF (0-3); Urobilinogen Normal mg/dL (Less than 2); WBC/HPF 21-50 HPF (0-3)
[2022-12-29 13:52] LABS: Bacteria/HPF 1+ HPF (None Seen)
[2022-12-29 13:53] LABS: Urine Culture Reflex Yes Yes
[2022-12-29] MEDS ORDERED: Dextrose 50% Abboject 50 ML SYRINGE SLOW IVP PRN (15:20)
[2022-12-29] MEDS ORDERED: Morphine 4 MG/ML VIAL SLOW IVP PRN (15:20)
[2022-12-29] MEDS ORDERED: hydrALAZINE 20 MG/ML VIAL SLOW IVP PRN (15:20)
[2022-12-29] MEDS ORDERED: Glucagon 1 MG/ML KIT IM PRN (15:20)
[2022-12-29] MEDS ORDERED: Morphine 2 MG/ML VIAL SLOW IVP PRN (15:20)
[2022-12-29] MEDS ORDERED: Dextrose 5% in Water 1,000 ML IV PRN (15:20)
[2022-12-29] MEDS ORDERED: Ondansetron PF 4 MG/2 ML Vial IVP PRN (15:20)
[2022-12-29] MEDS ORDERED: TETANUS, DIPHTHERIA TOX,ADULT (TDVAX) 0.5 ML VIAL IM ONE (15:20)
[2022-12-29 18:30] VITALS: BMI 29.2
[2022-12-29] MEDS: Lactated Ringer's 1,000 ML IV SCH (18:49)
[2022-12-29] MEDS: Trospium 20 MG TAB PO SCH (19:28)
[2022-12-29] MEDS: Levothyroxine Sodium 100 MCG TAB PO SCH (19:28)
[2022-12-29] MEDS: Atorvastatin Calcium 20 MG TAB PO SCH (19:28)
[2022-12-29] MEDS: Cefepime 2 GM in Sodium Chloride 0.9% 100 ML IVPB SCH (20:10)
[2022-12-29] MEDS: methylPREDNISolone Sod Succ 40 MG VIAL IVP SCH (21:15)
[2022-12-29] MEDS: HumaLOG 300 UNITS/3 ML VIAL SC PRN (23:56)
[2022-12-30 01:54] LABS: Hematocrit 40.8 % (36.0-47.0); Hemoglobin 14.1 g/dL (12.0-16.0)
[2022-12-30] MEDS: Lactated Ringer's 1,000 ML IV SCH ×2 (05:12→10:37)
[2022-12-30] MEDS: methylPREDNISolone Sod Succ 40 MG VIAL IVP SCH ×3 (05:12→21:07)
[2022-12-30] MEDS: HumaLOG 300 UNITS/3 ML VIAL SC PRN ×4 (05:50→21:24)
[2022-12-30] MEDS ORDERED: Pantoprazole 40 MG VIAL IVP SCH (09:00)
[2022-12-30] MEDS: Cefepime 2 GM in Sodium Chloride 0.9% 100 ML IVPB SCH (10:36)
[2022-12-30] MEDS: Folic Acid 1 MG TAB PO SCH (10:38)
[2022-12-30] MEDS: Trospium 20 MG TAB PO SCH ×2 (10:38→21:07)
[2022-12-30] MEDS: Venlafaxine HCl XR 75 MG CAP PO SCH (10:45)
[2022-12-30] MEDS: CO Q-10 CAPSULE 100 MG PO SCH (10:45)
[2022-12-30] MEDS ORDERED: MD-Gastroview 120 ML BOT ONE (11:43)
[2022-12-30 11:50] LABS: #Monocytes 0.3 thou/uL (0.11-0.59); #Neutrophils 8.3 thou/uL (1.40-6.50); %Basophils 0.1 % (0.0-1.0); %Lymphocytes 11.9 % (21.0-51.0); %Monocytes 3.1 % (0.0-10.0); %Neutrophils 84.7 % (42.0-75.0); Hematocrit 44.4 % (36.0-47.0); Mean Corpuscular HGB CONC 33.8 g/dL (32.0-36.0); Mean Corpuscular Hemoglobin 33.3 pg (27.0-31.0); Mean Corpuscular Volume 98.4 fl (78.0-98.0); Mean Platelet Volume 10.3 fL (7.4-10.4); Platelet Count 138 10x3/uL (130-400); RBC Distribution Width 12.4 % (11.5-14.5); Red Blood Cell (RBC) Count 4.51 mill/uL (4.20-5.40); White Blood Cell (WBC) Count 9.8 10x3/uL (4.8-10.8)
[2022-12-30 12:09] LABS: CRP (Inflammatory) 2.73 mg/dL (= or < 0.5); Phosphorus 2.5 mg/dL (2.3-4.7)
[2022-12-30 12:10] LABS: ALT (SGPT) 18 U/L (8-55); AST (SGOT) 14 U/L (5-34); Albumin 4.3 g/dL (3.4-4.8); Alkaline Phosphatase 79 U/L (40-110); Anion Gap 15 mmol/L (10-20); BUN (Urea Nitrogen) 17 mg/dL (9.8-20.1); Bilirubin, Total 0.8 mg/dL (0.2-1.2); Calc. Creatinine Clearance 64 mL/min (70-130); Carbon Dioxide 21 mmol/L (23-31); Chloride 108 mmol/L (98-107); Estimated GFR 59; Globulin 3.3 g/dL (2.4-3.5); Glucose 304 mg/dL (83-110); Magnesium 2.2 mg/dL (1.6-2.6); Potassium 4.2 mmol/L (3.5-5.1); Protein, Total 7.6 g/dL (5.8-8.1); Sodium 140 mmol/L (136-145)
[2022-12-30 12:29] LABS: Vitamin D, 25 Hydroxy 47.4 ng/ml (> 30.0)
[2022-12-30] MEDS ORDERED: Saccharomyces boulardii 250 MG CAP PO SCH (14:00)
[2022-12-30] MEDS ORDERED: Cholecalciferol 1,000 UNITS (25 MCG) TAB PO SCH (17:00)
[2022-12-30] MEDS: Levothyroxine Sodium 100 MCG TAB PO SCH (21:07)
[2022-12-30] MEDS: Atorvastatin Calcium 20 MG TAB PO SCH (21:07)
[2022-12-30] MEDS: Cefepime 1 GM in Sodium Chloride 0.9% 100 ML IVPB SCH (21:19)
[2022-12-31] MEDS: methylPREDNISolone Sod Succ 40 MG VIAL IVP SCH ×2 (05:47→14:27)
[2022-12-31] MEDS: HumaLOG 300 UNITS/3 ML VIAL SC PRN (05:56)
[2022-12-31] MEDS ORDERED: Saccharomyces boulardii 250 MG CAP PO SCH (09:00)
[2022-12-31] MEDS: Cefepime 1 GM in Sodium Chloride 0.9% 100 ML IVPB SCH (09:28)
[2022-12-31] MEDS: Venlafaxine HCl XR 75 MG CAP PO SCH (09:30)
[2022-12-31] MEDS: CO Q-10 CAPSULE 100 MG PO SCH (09:30)
[2022-12-31] MEDS: Trospium 20 MG TAB PO SCH (09:30)
[2022-12-31] MEDS: Folic Acid 1 MG TAB PO SCH (09:30)
[2022-12-31 13:55] VITALS: TEMP 98.5
[2022-12-31 15:44] VITALS: BP 158/80
== END 2022-12-31 15:26 | disposition home or self-care (01) | DRG 386 ==
LOC: ERS 11:19 → SURG A 15:30
PROVIDERS: ADMIT Internal Medicine; ATTEND Internal Medicine
DX: K50.90 Crohn's disease, unspecified, without complications (principal); K56.600 Partial intestinal obstruction, unspecified as to cause; Q79.60 Ehlers-Danlos syndrome, unspecified; K92.1 Melena; R14.0 Abdominal distension (gaseous); K21.9 Gastro-esophageal reflux disease without esophagitis; J84.10 Pulmonary fibrosis, unspecified; E11.9 Type 2 diabetes mellitus without complications; E78.5 Hyperlipidemia, unspecified; F32.9 Major depressive disorder, single episode, unspecified; E03.9 Hypothyroidism, unspecified; R63.4 Abnormal weight loss; K22.2 Esophageal obstruction; K57.30 Diverticulosis of large intestine without perforation or abscess without bleeding; K44.9 Diaphragmatic hernia without obstruction or gangrene; Z96.643 Presence of artificial hip joint, bilateral; Z88.1 Allergy status to other antibiotic agents; Z79.899 Other long term (current) drug therapy; Z79.4 Long term (current) use of insulin; Z79.890 Hormone replacement therapy; Z90.49 Acquired absence of other specified parts of digestive tract; Z90.89 Acquired absence of other organs; Z98.890 Other specified postprocedural states; Z90.710 Acquired absence of both cervix and uterus; Z98.1 Arthrodesis status
CPT/HCPCS: 36415; 36416; 74018; 74019; 74177; 74250; 80053; 81001; 82306; 82607; 83690; 83735; 84100; 84484; 85025; 85652; 86140; 86480; 87086; 93005; 96374; 96376; C9113; J0360; J0692; J1650; J1815; J2272; J2405; J2920; J3490; J7120; Q9963

== ENCOUNTER 2023-02-19 13:03 | Outpatient (CLI) | payer MEDICARE | END 2023-02-19 13:04 | disposition home or self-care (01) | LOC: BICMAMMO 13:03 | PROVIDERS: ATTEND Family Medicine Sports Medicine | DX: Z12.31 Encounter for screening mammogram for malignant neoplasm of breast (principal); Z91.89 Other specified personal risk factors, not elsewhere classified; Z98.890 Other specified postprocedural states; Z85.89 Personal history of malignant neoplasm of other organs and systems | CPT/HCPCS: 77063; 77067 ==

== ENCOUNTER 2023-06-04 13:53 | Emergency (ER) | payer MEDICARE | END 2023-06-04 16:00 | disposition home or self-care (01) | LOC: ERS 13:53 | DX: S00.12XA Contusion of left eyelid and periocular area, initial encounter (principal); K21.9 Gastro-esophageal reflux disease without esophagitis; I10 Essential (primary) hypertension; E78.5 Hyperlipidemia, unspecified; E11.9 Type 2 diabetes mellitus without complications; M06.9 Rheumatoid arthritis, unspecified; K50.90 Crohn's disease, unspecified, without complications; Q27.30 Arteriovenous malformation, site unspecified; W01.198A Fall on same level from slipping, tripping and stumbling with subsequent striking against other object, initial encounter; Z55.0 Illiteracy and low-level literacy; Z79.4 Long term (current) use of insulin; Z79.899 Other long term (current) drug therapy | CPT/HCPCS: 70450; 72125; 93005 ==

== ENCOUNTER 2023-06-30 18:57 | Emergency (ER) | payer MEDICARE ==
[2023-06-30] MEDS ORDERED: Ondansetron PF 4 MG/2 ML Vial ONE (19:23)
[2023-06-30 19:30] LABS: #Eosinphils 0.2 thou/uL (0.0-0.7); #Neutrophils 4.3 thou/uL (1.40-6.50); %Basophils 0.1 % (0.0-1.0); %Eosinophils 2.1 % (0.0-10.0); %Monocytes 14.3 % (0.0-10.0); %Neutrophils 59.4 % (42.0-75.0); Hematocrit 40.4 % (36.0-47.0); Hemoglobin 14.4 g/dL (12.0-16.0); Mean Corpuscular HGB CONC 35.6 g/dL (32.0-36.0); Mean Corpuscular Hemoglobin 33.6 pg (27.0-31.0); Mean Corpuscular Volume 94.2 fl (78.0-98.0); Mean Platelet Volume 10.3 fL (7.4-10.4); Red Blood Cell (RBC) Count 4.29 mill/uL (4.20-5.40); White Blood Cell (WBC) Count 7.3 10x3/uL (4.8-10.8)
[2023-06-30 19:31] LABS: Platelet Count 127 10x3/uL (130-400)
[2023-06-30 19:51] LABS: ALT (SGPT) 21 U/L (8-55); AST (SGOT) 24 U/L (5-34); Albumin 4.4 g/dL (3.4-4.8); Alkaline Phosphatase 93 U/L (40-110); Anion Gap 15 mmol/L (10-20); BUN (Urea Nitrogen) 18 mg/dL (9.8-20.1); Bilirubin, Total 1.4 mg/dL (0.2-1.2); Calc. Creatinine Clearance 0 mL/min (70-130); Carbon Dioxide 23 mmol/L (23-31); Chloride 104 mmol/L (98-107); Estimated GFR 60; Globulin 3.1 g/dL (2.4-3.5); Glucose 153 mg/dL (83-110); Potassium 3.8 mmol/L (3.5-5.1); Protein, Total 7.5 g/dL (5.8-8.1); Sodium 138 mmol/L (136-145)
== END 2023-06-30 23:12 | disposition home or self-care (01) ==
LOC: ERS 18:57
DX: A08.4 Viral intestinal infection, unspecified (principal); I10 Essential (primary) hypertension; E11.9 Type 2 diabetes mellitus without complications
CPT/HCPCS: 74177; 80053; 85025; 96361; 96374; J2405

== ENCOUNTER 2023-10-10 12:59 | Emergency (ER) | payer MEDICARE | END 2023-10-10 15:28 | disposition home or self-care (01) | LOC: ERS 12:59 | DX: S00.93XA Contusion of unspecified part of head, initial encounter (principal); I10 Essential (primary) hypertension; E11.9 Type 2 diabetes mellitus without complications; W22.8XXA Striking against or struck by other objects, initial encounter | CPT/HCPCS: 70450 ==

== ENCOUNTER 2024-05-23 20:33 | Emergency (ER) | payer MEDICARE ==
[2024-05-23] MEDS ORDERED: Sodium Chloride 0.9% 100 ML ONE (23:06)
[2024-05-23] MEDS ORDERED: hydrALAZINE 20 MG/ML VIAL ONE ×2 (23:06→23:12)
[2024-05-23] MEDS ORDERED: cefTRIAXone (ROCEPHIN) 2 GM VIAL ONE (23:06)
== END 2024-05-24 00:23 | disposition home or self-care (01) ==
LOC: ERS 20:33
DX: R10.12 Left upper quadrant pain (principal); E11.9 Type 2 diabetes mellitus without complications; I10 Essential (primary) hypertension; K21.9 Gastro-esophageal reflux disease without esophagitis; E78.5 Hyperlipidemia, unspecified; Z79.899 Other long term (current) drug therapy; Z55.6 Problems related to health literacy; Z96.642 Presence of left artificial hip joint
CPT/HCPCS: 93005; 96365; 96375; 99284; J0360; J0696

== ENCOUNTER 2024-12-12 20:30 | Emergency (ER) | payer MEDICARE | END 2024-12-12 22:11 | LOC: ERS 20:30 | DX: M79.672 Pain in left foot (principal); I10 Essential (primary) hypertension; E11.9 Type 2 diabetes mellitus without complications; Z53.29 Procedure and treatment not carried out because of patient's decision for other reasons | CPT/HCPCS: 99283 ==

== ENCOUNTER 2025-04-23 19:56 | Inpatient (IN) | payer MEDICARE ==
[2025-04-23] MEDS ORDERED: hydrALAZINE 20 MG/ML VIAL ONE ×2 (22:14→22:54)
[2025-04-23 22:57] LABS: #Basophils Less than 0.03 10x3/uL (0.0-0.2); #Eosinophils 0.12 10x3/uL (0.0-0.7); #Monocytes 0.40 10x3/uL (0.11-0.59); #Neutrophils 2.38 10x3/uL (1.40-6.50); %Basophils 0.4 % (0.0-1.0); %Eosinophils 2.2 % (0.0-10.0); %Lymphocytes 45.0 % (21.0-51.0); %Monocytes 7.5 % (0.0-10.0); %Neutrophils 44.5 % (42.0-75.0); Hematocrit 40.0 % (36.0-47.0); Hemoglobin 14.0 g/dL (12.0-16.0); Mean Corpuscular Hemoglobin 32.9 pg (27.0-31.0); Mean Corpuscular Volume 93.9 fL (78.0-98.0); Platelet Count 134 10x3/uL (130-400); Red Blood Cell (RBC) Count 4.26 mill/uL (4.20-5.40); White Blood Cell (WBC) Count 5.35 10x3/uL (4.8-10.8)
[2025-04-23] MEDS ORDERED: Dextrose 50% Abboject 50 ML SYRINGE SLOW IVP PRN (23:05)
[2025-04-23] MEDS ORDERED: Glucagon 1 MG/ML KIT IM PRN (23:05)
[2025-04-23] MEDS ORDERED: Ondansetron PF 4 MG/2 ML Vial IVP PRN (23:05)
[2025-04-23 23:35] LABS: ALT (SGPT) 20 U/L (Less than 34); AST (SGOT) 29 U/L (11-34); Albumin 4.2 g/dL (3.1-4.5); Alkaline Phosphatase 119 U/L (40-110); Anion Gap 14 mmol/L (10-20); BUN (Urea Nitrogen) 15 mg/dL (9.8-20.1); Bilirubin, Total 0.4 mg/dL (0.3-1.2); Calc. Creatinine Clearance 0 mL/min (70-130); Calcium 9.4 mg/dL (7.8-10.44); Carbon Dioxide 24 mmol/L (23-31); Chloride 106 mmol/L (98-107); Globulin 2.6 g/dL (2.4-3.5); Glucose 284 mg/dL (83-110); Potassium 4.2 mmol/L (3.5-5.1); Sodium 140 mmol/L (136-145)
[2025-04-23 23:47] LABS: Bacteria/HPF None Seen HPF (None Seen); CAUTI Indications for Culture Dysuria,urgency,freq; Glucose, Urine (Dipstick) Greater than 1000 mg/dL (Negative); Leukocyte Negative Leu/uL (Negative); Protein, Urine (Dipstick) 20 mg/dL (Neg-Trace); RBC/HPF 0-3 HPF (0-3); Specific Gravity, Urine 1.015 (1.002-1.036); WBC/HPF 0-3 HPF (0-3)
[2025-04-23 23:48] LABS: Urine Culture Reflex No No
[2025-04-24 00:58] VITALS: BMI 28.5
[2025-04-24 06:44] LABS: #Basophils 0.03 10x3/uL (0.0-0.2); #Eosinophils 0.07 10x3/uL (0.0-0.7); #Monocytes 0.77 10x3/uL (0.11-0.59); #Neutrophils 4.42 10x3/uL (1.40-6.50); %Basophils 0.4 % (0.0-1.0); %Eosinophils 0.8 % (0.0-10.0); %Lymphocytes 37.9 % (21.0-51.0); %Monocytes 9.0 % (0.0-10.0); %Neutrophils 51.5 % (42.0-75.0); Hematocrit 34.9 % (36.0-47.0); Hemoglobin 11.8 g/dL (12.0-16.0); Mean Corpuscular Hemoglobin 32.3 pg (27.0-31.0); Mean Corpuscular Volume 95.6 fL (78.0-98.0); Platelet Count 116 10x3/uL (130-400); Red Blood Cell (RBC) Count 3.65 mill/uL (4.20-5.40); White Blood Cell (WBC) Count 8.56 10x3/uL (4.8-10.8)
[2025-04-24 06:50] LABS: Anion Gap 13 mmol/L (10-20); BUN (Urea Nitrogen) 12 mg/dL (9.8-20.1); Calc. Creatinine Clearance 92 mL/min (70-130); Calcium 8.8 mg/dL (7.8-10.44); Carbon Dioxide 23 mmol/L (23-31); Chloride 108 mmol/L (98-107); Glucose 179 mg/dL (83-110); Potassium 4.4 mmol/L (3.5-5.1); Sodium 140 mmol/L (136-145)
[2025-04-24] MEDS: Senokot S 8.6-50 MG TAB PO SCH (08:28)
[2025-04-24] MEDS: Enoxaparin 40 MG (0.4 mL) SYRINGE SC SCH (10:57)
[2025-04-24 17:30] LABS: Bacteria/HPF None Seen HPF (None Seen); Glucose, Urine (Dipstick) 500 mg/dL (Negative); Leukocyte 25 Leu/uL (Negative); Protein, Urine (Dipstick) Negative (Neg-Trace); RBC/HPF 0-3 HPF (0-3); Specific Gravity, Urine 1.015 (1.002-1.036)
[2025-04-24] MEDS: Pantoprazole 40 MG DR.TAB PO SCH (21:49)
[2025-04-24] MEDS: Methocarbamol 500 MG TAB PO PRN (22:05)
[2025-04-24] MEDS: Acetaminophen 325 MG TAB PO PRN (22:06)
[2025-04-25 06:36] LABS: Anion Gap 13 mmol/L (10-20); BUN (Urea Nitrogen) 13 mg/dL (9.8-20.1); Calc. Creatinine Clearance 77 mL/min (70-130); Calcium 8.9 mg/dL (7.8-10.44); Carbon Dioxide 27 mmol/L (23-31); Chloride 108 mmol/L (98-107); Glucose 200 mg/dL (83-110); Potassium 5.5 mmol/L (3.5-5.1); Sodium 142 mmol/L (136-145)
[2025-04-25 07:16] LABS: Anion Gap 12 mmol/L (10-20); BUN (Urea Nitrogen) 12 mg/dL (9.8-20.1); Calc. Creatinine Clearance 88 mL/min (70-130); Calcium 8.5 mg/dL (7.8-10.44); Carbon Dioxide 25 mmol/L (23-31); Chloride 107 mmol/L (98-107); Glucose 219 mg/dL (83-110); Potassium 4.1 mmol/L (3.5-5.1); Sodium 140 mmol/L (136-145)
[2025-04-25 07:24] LABS: Macrocytosis SLIGHT = 6-15 cells HPF (0-5); Nucleated RBC (Manual Ct) 1 % (0); Platelet Adequacy Comment Platelets Decreased; Polychromasia SLIGHT = 2-3 cells HPF (0-2); Smudge Cells 5.9 %
[2025-04-25 07:27] LABS: Hematocrit 34.1 % (36.0-47.0); Hemoglobin 11.3 g/dL (12.0-16.0); Mean Corpuscular Hemoglobin 32.7 pg (27.0-31.0); Mean Corpuscular Volume 97.7 fL (78.0-98.0); Platelet Count 107 10x3/uL (130-400); Red Blood Cell (RBC) Count 3.46 mill/uL (4.20-5.40); White Blood Cell (WBC) Count 5.89 10x3/uL (4.8-10.8)
[2025-04-25] MEDS: Floranex 1 GM Packet PO SCH (08:39)
[2025-04-25] MEDS: BuPROPion XL 150 MG ER.TAB PO SCH (08:40)
[2025-04-25] MEDS: Metoprolol Succinate XL 100 MG ER.TAB PO SCH (08:41)
[2025-04-25] MEDS: Folic Acid 1 MG TAB PO SCH (08:41)
[2025-04-25] MEDS: Multivit, Therapeutic 1 TAB PO SCH (19:37)
[2025-04-25] MEDS: Cholecalciferol 1,000 UNITS (25 MCG) TAB PO SCH (19:38)
[2025-04-26 06:28] LABS: #Basophils Less than 0.03 10x3/uL (0.0-0.2); #Eosinophils 0.11 10x3/uL (0.0-0.7); #Monocytes 0.61 10x3/uL (0.11-0.59); #Neutrophils 3.28 10x3/uL (1.40-6.50); %Basophils 0.3 % (0.0-1.0); %Eosinophils 1.8 % (0.0-10.0); %Lymphocytes 35.7 % (21.0-51.0); %Monocytes 9.7 % (0.0-10.0); %Neutrophils 52.2 % (42.0-75.0); Hematocrit 33.8 % (36.0-47.0); Hemoglobin 11.6 g/dL (12.0-16.0); Mean Corpuscular Hemoglobin 32.8 pg (27.0-31.0); Mean Corpuscular Volume 95.5 fL (78.0-98.0); Platelet Count 101 10x3/uL (130-400); Red Blood Cell (RBC) Count 3.54 mill/uL (4.20-5.40); White Blood Cell (WBC) Count 6.28 10x3/uL (4.8-10.8)
[2025-04-26 06:49] LABS: Anion Gap 12 mmol/L (10-20); BUN (Urea Nitrogen) 16 mg/dL (9.8-20.1); Calc. Creatinine Clearance 90 mL/min (70-130); Calcium 8.8 mg/dL (7.8-10.44); Carbon Dioxide 25 mmol/L (23-31); Chloride 110 mmol/L (98-107); Glucose 196 mg/dL (83-110); Magnesium 2.0 mg/dL (1.6-2.6); Potassium 4.0 mmol/L (3.5-5.1); Sodium 143 mmol/L (136-145)
[2025-04-26] MEDS: Metoprolol Succinate XL 100 MG ER.TAB PO SCH (08:37)
[2025-04-26] MEDS: Magnesium Oxide 400 MG TAB PO SCH (08:37)
[2025-04-26] MEDS: HYDROcodone/Acetaminophen 5/325 mg Tablet PO PRN (10:09)
[2025-04-27 05:33] LABS: #Basophils Less than 0.03 10x3/uL (0.0-0.2); #Eosinophils 0.10 10x3/uL (0.0-0.7); #Monocytes 0.47 10x3/uL (0.11-0.59); #Neutrophils 2.40 10x3/uL (1.40-6.50); %Basophils 0.2 % (0.0-1.0); %Eosinophils 1.9 % (0.0-10.0); %Lymphocytes 44.3 % (21.0-51.0); %Monocytes 8.7 % (0.0-10.0); %Neutrophils 44.5 % (42.0-75.0); Hematocrit 35.7 % (36.0-47.0); Hemoglobin 12.2 g/dL (12.0-16.0); Mean Corpuscular Hemoglobin 32.9 pg (27.0-31.0); Mean Corpuscular Volume 96.2 fL (78.0-98.0); Platelet Count 113 10x3/uL (130-400); Red Blood Cell (RBC) Count 3.71 mill/uL (4.20-5.40); White Blood Cell (WBC) Count 5.39 10x3/uL (4.8-10.8)
[2025-04-27 05:50] LABS: Anion Gap 12 mmol/L (10-20); BUN (Urea Nitrogen) 14 mg/dL (9.8-20.1); Calc. Creatinine Clearance 86 mL/min (70-130); Calcium 9.0 mg/dL (7.8-10.44); Carbon Dioxide 28 mmol/L (23-31); Chloride 108 mmol/L (98-107); Glucose 155 mg/dL (83-110); Potassium 3.9 mmol/L (3.5-5.1); Sodium 144 mmol/L (136-145)
[2025-04-27] MEDS ORDERED: Glucagon 1 MG/ML KIT IM PRN (07:45)
[2025-04-27] MEDS ORDERED: Dextrose 50% Abboject 50 ML SYRINGE SLOW IVP PRN (07:45)
[2025-04-28] MEDS: Losartan 25 MG TAB PO SCH (08:43)
[2025-04-29] MEDS: hydrALAZINE 20 MG/ML VIAL SLOW IVP PRN (04:28)
[2025-04-29 07:08] LABS: #Basophils Less than 0.03 10x3/uL (0.0-0.2); #Eosinophils 0.14 10x3/uL (0.0-0.7); #Monocytes 0.71 10x3/uL (0.11-0.59); #Neutrophils 4.04 10x3/uL (1.40-6.50); %Basophils 0.3 % (0.0-1.0); %Eosinophils 1.8 % (0.0-10.0); %Lymphocytes 36.0 % (21.0-51.0); %Monocytes 9.2 % (0.0-10.0); %Neutrophils 52.3 % (42.0-75.0); Hematocrit 36.6 % (36.0-47.0); Hemoglobin 12.3 g/dL (12.0-16.0); Mean Corpuscular Hemoglobin 32.6 pg (27.0-31.0); Mean Corpuscular Volume 97.1 fL (78.0-98.0); Platelet Count 121 10x3/uL (130-400); Red Blood Cell (RBC) Count 3.77 mill/uL (4.20-5.40); White Blood Cell (WBC) Count 7.72 10x3/uL (4.8-10.8)
[2025-04-29 07:17] LABS: ALT (SGPT) 15 U/L (Less than 34); AST (SGOT) 19 U/L (11-34); Albumin 3.6 g/dL (3.1-4.5); Alkaline Phosphatase 82 U/L (40-110); Anion Gap 11 mmol/L (10-20); BUN (Urea Nitrogen) 15 mg/dL (9.8-20.1); Bilirubin, Total 0.5 mg/dL (0.3-1.2); Calc. Creatinine Clearance 90 mL/min (70-130); Calcium 9.4 mg/dL (7.8-10.44); Carbon Dioxide 26 mmol/L (23-31); Chloride 106 mmol/L (98-107); Globulin 2.9 g/dL (2.4-3.5); Glucose 164 mg/dL (83-110); Magnesium 2.3 mg/dL (1.6-2.6); Potassium 3.8 mmol/L (3.5-5.1); Sodium 139 mmol/L (136-145)
[2025-04-29 11:12] VITALS: BP 158/68; TEMP 97.6
== END 2025-04-29 11:28 | DRG 534 ==
LOC: ERS 19:56 → SURG A 23:05 → OBSVTOIN 04-24 21:24
PROVIDERS: ADMIT Surgery; ATTEND Surgery
DX: S72.92XA Unspecified fracture of left femur, initial encounter for closed fracture (principal); M97.01XA Periprosthetic fracture around internal prosthetic right hip joint, initial encounter; K50.90 Crohn's disease, unspecified, without complications; Q79.60 Ehlers-Danlos syndrome, unspecified; I10 Essential (primary) hypertension; E78.5 Hyperlipidemia, unspecified; M06.9 Rheumatoid arthritis, unspecified; E11.9 Type 2 diabetes mellitus without complications; K21.9 Gastro-esophageal reflux disease without esophagitis; E03.9 Hypothyroidism, unspecified; F32.A Depression, unspecified; G89.29 Other chronic pain; W18.30XA Fall on same level, unspecified, initial encounter; Z96.643 Presence of artificial hip joint, bilateral; Z90.49 Acquired absence of other specified parts of digestive tract; Z90.710 Acquired absence of both cervix and uterus; Z98.890 Other specified postprocedural states; Z88.1 Allergy status to other antibiotic agents
CPT/HCPCS: 36415; 36416; 72170; 72192; 80048; 80053; 81001; 81003; 81015; 83036; 83735; 84100; 85025; G0390; J0360; J1650; J2270; J7120